=== PATIENT | male | born 1975 | race Caucasian/White ===

== ENCOUNTER 2017-12-21 20:09 | Emergency (ER) | payer SELFPAY ==
[2017-12-21] MEDS ORDERED: Acetaminophen 325 MG Tab PO ONE (20:44)
[2017-12-21] MEDS ORDERED: Ibuprofen 800 MG Tab PO ONE (20:44)
[2017-12-21] MEDS ORDERED: Lidocaine 1% 50 ML MDV INJECT ONE (20:44)
--- NOTE | 2017-12-21 20:45 | EDM.PDOC ---
ED HPI GENERAL MEDICAL PROBLEM - General Chief Complaint: ENT Problem Stated Complaint: OUTSIDE OF LEFT EAR SWOLLEN Time Seen by Provider: 12/21/17 20:21 Source of Information: Reports: Patient, RN Notes Reviewed - History of Present Illness INITIAL COMMENTS - FREE TEXT/NARRATIVE: has had area of infection develop L upper ear lobe about a week ago, squeezed it 3 to 4 days ago and now infection, swelling has worsened. Also areas of skin irritation bilat arms, areas of legs as well that he has had chronically. No fever or chills. Left Ear Pain Score (Numeric/FACES): 5 - Related Data Allergies Allergy/AdvReac Type Severity Reaction Status Date / Time No Known Allergies Allergy Verified 12/21/17 20:25 Home Meds: Home Meds Doxycycline [Vibramycin] 100 mg PO BID #30 cap 12/21/17 [Rx] Past Medical History Dermatologic History: Reports: Chronic Cellulitis Social & Family History - Tobacco Use Smoking Status *Q: Current Every Day Smoker Years of Tobacco use: 20 Packs/Tins Daily: 1.5 - Caffeine Use Caffeine Use: Reports: Coffee - Recreational Drug Use Recreational Drug Use: No ED ROS ENT - Review of Systems Review Of Systems: See Below Constitutional: Denies: Fever, Chills HEENT: Reports: No Symptoms Respiratory: Denies: Shortness of Breath Cardiovascular: Denies: Chest Pain GI/Abdominal: Denies: Abdominal Pain, Nausea, Vomiting Skin: Reports: Rash Neurological: Reports: No Symptoms ED EXAM, ENT - Physical Exam Exam: See Below General Appearance: Alert, No Apparent Distress Eye Exam: Bilateral Eye: PERRL Ears: TM Erythema (swelling, erythema L upper ear lobe, moderate localized tenderness) Head: Atraumatic Neck: Supple Respiratory/Chest: No Respiratory Distress Skin: Warm, Dry, Normal Color, Rash (scattered bilat arms, non raised, erythematous, chronic appearing) ED I&D PROCEDURES - I&D Site: L upper ear lobe Skin prep: Providone-Iodine (Betadine) Local anesthesia - Lidocaine (Xylocaine): 1% Plain Area Incised With: 11 Blade Drainage: Bloody, Small Amount Course - Vital Signs Last Recorded V/S: Last Vital Signs Temp 98.2 F 12/21/17 20:20 Pulse 96 12/21/17 20:20 Resp 18 12/21/17 20:20 BP 136/100 H 12/21/17 20:20 Pulse Ox 95 12/21/17 20:20 - Orders/Labs/Meds Meds: Medications Discontinued Medications Generic Name Dose Route Start Last Admin Trade Name Fadi PRN Reason Stop Dose Admin Acetaminophen 975 mg 12/21/17 20:44 12/21/17 21:06 Tylenol PO 12/21/17 20:45 975 mg NOW ONE Administration Ibuprofen 800 mg 12/21/17 20:44 12/21/17 21:06 Motrin PO 12/21/17 20:45 800 mg ONETIME ONE Administration Lidocaine HCl 50 ml 12/21/17 20:44 12/21/17 21:07 Xylocaine 1% INJECT 12/21/17 20:45 50 ml ONETIME ONE Administration Departure - Departure Time of Disposition: 21:29 Disposition: Home, Self-Care 01 Clinical Impression: Abscess, earlobe Qualifiers: Laterality: left Qualified Code(s): H60.02 - Abscess of left external ear - Discharge Information Prescriptions: Doxycycline [Vibramycin] 100 mg PO BID #30 cap Instructions: Skin Abscess Referrals: PCP,Not In Area [Primary Care Provider] - Forms: ED Department Discharge Additional Instructions: warm compresses L ear 2 to 3 times daily as best you can, doxycycline antibiotic 200 mg (2 pills) twice daily for 1 week and than 1 twice daily until gone, do not squeeze ear as that will spread the infection, follow up clinic as needed if not much better with in 3 to 4 days as expected.
== END 2017-12-21 22:05 | disposition home or self-care (01) ==
LOC: JD.ED 20:09
DX: H60.02 Abscess of left external ear (principal); F17.210 Nicotine dependence, cigarettes, uncomplicated
CPT/HCPCS: 10060; 99283; A9270